=== PATIENT | male | born 1960 | race Caucasian/White ===

== ENCOUNTER 2016-12-25 11:19 | Inpatient (IN) | payer OTHER ==
[~2016-12-25] VITALS: Ht 175.3 cm; Wt 80.5 kg
[2016-12-25] MEDS: SODIUM CHLORIDE 0.9% 1000ML 1,000 ML IV SCH ×2 (00:10→17:55)
[2016-12-25] MEDS ORDERED: MULTTAB58 PO (12:00)
[2016-12-25] MEDS ORDERED: ATV/1 PO (12:00)
[2016-12-25] MEDS ORDERED: TAMS0.4C38 PO (12:00)
[2016-12-25] MEDS ORDERED: CHOL1000 PO (12:00)
[2016-12-25] MEDS ORDERED: VENL150C56 PO (12:00)
[2016-12-25] MEDS ORDERED: OMEP20CA9 PO (12:00)
[2016-12-25] MEDS ORDERED: QUET5TAB PO (12:00)
[2016-12-25] MEDS ORDERED: MULT-845 PO (12:00)
[2016-12-25] MEDS ORDERED: SODIUM CHLORIDE 0.9% 1000ML 1,000 ML IV STA ×2 (12:37→13:15)
--- NOTE | 2016-12-25 12:54 | EMERGENCY ROOM VISIT NOTE ---
History Report prepared by Kelly: Arnoldo Grider Under the Supervision of: Dr. Iman Sarah M.D. First contact with patient: 12:18 Chief Complaint: ABDOMINAL PAIN Stated Complaint: ABD PAIN Nursing Triage Summary: Pt presents with abd pain, RLQ. Was admitted at [facility] for 10 days with this pain. History of cirrhosis. Diarrhea today. Abd distended. Drank alcohol this AM. Denies vomiting. Pt jaundiced. History of Present Illness The patient is a 56 year old male who presents to the Emergency Room with complaints of right lower quadrant abdominal pain starting about 2 weeks ago and worsening about 3 days ago. He also complains of abdominal distention. 10 days ago, the patient was evaluated at [facility] for similar symptoms. He has a history of liver cirrhosis. He had a couple of shots of alcohol this morning. He drank a pint yesterday. He drinks about 2/5 of vodka a day. He has been drinking alcohol for the past 45 years. He also has a history of Hepatitis C. He denies any fevers, chills, or any other complaints. Source of History: patient Onset: about 2 weeks ago Position: abdomen (RLQ) Timing: worsening Associated Symptoms: No fevers, No chills Review of Systems See HPI for pertinent positives & negatives. A total of 10 systems reviewed and were otherwise negative. Past Medical & Surgical Medical Problems: (1) Abdominal pain, lactic acidosis (2) Hepatitis C (3) Liver cirrhosis Family History Patient reports no known family medical history. Social History Smoking Status: Current Every Day Smoker Alcohol Use: heavy Marital Status: single Occupation Status: retired Current/Historical Medications Scheduled Cholecalciferol (Vitamin D3), 1 TAB PO DAILY Lorazepam (Ativan), 1 MG PO DAILY Multiple Vitamin (Multivitamin), 1 TAB PO DAILY Multiple Vitamins W/ Minerals (Centrum Silver Adult 50+), 1 TAB PO DAILY Omeprazole (Prilosec), 20 MG PO BID Quetiapine Fumarate (Seroquel), 50 MG PO BID Tamsulosin Hcl (Flomax), 0.4 MG PO DAILY Venlafaxine Hcl (Effexor Extended Rel), 150 MG PO DAILY Allergies Coded Allergies: No Known Allergies (Unverified , 12/25/16) Physical Exam Vital Signs Date Time Temp Pulse Resp B/P (MAP) Pulse Ox O2 Delivery O2 Flow Rate FiO2 12/25/16 14:50 111 18 132/80 91 Room Air 12/25/16 13:43 110 17 122/78 93 Room Air 12/25/16 13:17 36.8 12/25/16 12:18 113 12/25/16 11:29 37.0 114 17 135/89 97 Room Air Physical Exam Vital signs reviewed. General: Chronically ill-appearing, in no significant distress. HEENT: No scleral icterus, PERRLA, neck supple. Atraumatic. Cardiovascular: Regular rate and rhythm, no extra sounds. Pulmonary: Clear to auscultation bilaterally, normal work of breathing. Abdomen: Soft, diffuse abdominal tenderness, positive bowel sounds. Abdominal distention with positive fluid wave. Musculoskeletal: Atraumatic, no peripheral edema. Neurologic: Patient awake alert and oriented x 3, full strength in all 4 extremities. Cranial nerves 2 through 12 grossly intact. Skin: Warm to touch, dry, no rash. Skin changes consistent with liver disease. Medical Decision & Procedures ER Provider Diagnostic Interpretation: CT and paracentesis results as stated below per my review and radiologist interpretation: CT OF THE ABDOMEN AND PELVIS WITH CONTRAST CLINICAL HISTORY: Abdominal pain, cirrhosis, fever and sepsis. COMPARISON STUDY: None. TECHNIQUE: Following IV administration of 93 mL of Optiray-320, axial images of the abdomen and pelvis were obtained from the lung bases to the proximal femurs. Images were reviewed in the axial, sagittal, and coronal planes. IV contrast was administered without complication. CT DOSE: 660.38 mGy.cm FINDINGS: Visualized portions of the lower chest demonstrate mild cardiomegaly and gynecomastia. There are trace bilateral pleural effusions with associated opacities consistent with atelectasis. There is a moderate to large amount of abdominal and pelvic ascites. The lateral segment of the liver is enlarged. There is fissural widening. There is slight nodularity of the liver surface. The findings indicate cirrhosis. No hepatic lesions are identified although sensitivity for detection of hypervascular lesions is diminished on this arterial phase exam. Size of the spleen is at the upper limits of normal. There are multiple small abdominal and pelvic varices. There is no evidence for a bowel obstruction. There is sigmoid diverticulosis without evidence for acute diverticulitis. The adrenal glands, kidneys and pancreas are normal. The main, left and right portal veins are patent. A small fat-containing umbilical hernia is present. IMPRESSION: 1. Cirrhosis with manifestations of portal hypertension including moderate to large ascites and varices formation. 2. Sigmoid diverticulosis without evidence for acute diverticulitis. 3. Trace bilateral pleural effusions. 4. Mild cardiomegaly. Electronically signed by: Bob Aguilera M.D. 12/25/2016 3:26 PM Dictated Date/Time: 12/25/2016 3:18 PM ULTRASOUND GUIDED DIAGNOSTIC AND THERAPEUTIC PARACENTESIS CLINICAL HISTORY: SBP, ETOH cirrhosis COMPARISON STUDY: CT of the abdomen and pelvis December 25, 2016. PROCEDURE: The risks, benefits, and alternatives to the procedure were discussed with the patient including the risk of bleeding, infection and injury to adjacent structures. The patient agreed to the procedure and informed written consent was obtained. Following real-time ultrasound localization, the skin of the right lower quadrant was prepped and draped. Following local anesthesia with Xylocaine, the sheath paracentesis needle was inserted and approximately 4 liters of straw-colored fluid was removed by vacuum suction. The patient tolerated the procedure well and no immediate complications were evident. IMPRESSION: Ultrasound-guided diagnostic and therapeutic paracentesis with removal of 4 liters of ascites. One bottle of ascites was sent to laboratory for analysis as ordered. Electronically signed by: Bob Aguilera M.D. 12/25/2016 4:53 PM Laboratory Results Test 12/25/16 00:00 12/25/16 12:34 12/25/16 13:06 12/25/16 13:24 Peritoneal Fluid Color YELLOW Peritoneal Fluid Appearance CLEAR Peritoneal Fluid WBC 84 /uL (0-300) Peritoneal Fluid RBC < 3000 /uL Peritoneal Fld Mononuclear WBCs (%) 83.6 % Peritoneal Fld Polynuclear WBCs (%) 16.4 % Peritoneal Fluid Total Protein 1.0 g/dl Peritoneal Fluid Albumin < 0.6 g/dl Peritoneal Fluid LDH 30 IU Peritoneal Fluid Glucose 110 mg/dl Peritoneal Fluid Amylase 7 U/L Peritoneal Fluid Lipase 90 U/L Peritoneal Fluid Triglycerides 48 mg/dl Polychromasia 1+ Prothrombin Time 15.4 SECONDS (9.0-12.0) Prothromb Time International Ratio 1.4 (0.9-1.1) Activated Partial Thromboplast Time 33.6 SECONDS (21.0-31.0) Partial Thromboplastin Ratio 1.3 Total Bilirubin 1.9 mg/dl (0.2-1) Direct Bilirubin 1.3 mg/dl (0-0.2) Aspartate Amino Transf (AST/SGOT) 29 U/L (15-37) Alanine Aminotransferase (ALT/SGPT) 11 U/L (12-78) Alkaline Phosphatase 191 U/L (45-117) Ammonia 15.0 umol/L (11-32) Total Protein 7.0 gm/dl (6.4-8.2) Albumin 2.0 gm/dl (3.4-5.0) Bedside Lactic Acid Venous 5.57 mmol/L (0.90-1.70) Bedside Troponin I < 0.030 ng/ml (0-0.045) Test 12/25/16 13:28 Ethyl Alcohol mg/dL 47.0 mg/dl (0-3) Laboratory results per my review. Medications Administered Medications (Trade) Dose Ordered Sig/Heber Route Start Time Stop Time Status Last Admin Dose Admin Sodium Chloride 1,000 ml @ 125 mls/hr Q8H STAT IV 12/25/16 12:37 12/25/16 18:40 DC 12/25/16 13:07 125 MLS/HR Piperacillin Sod/ Tazobactam Sod (Zosyn Iv) 4.5 gm NOW STAT IV 12/25/16 13:11 12/25/16 13:12 DC 12/25/16 13:46 4.5 GM Sodium Chloride 1,000 ml @ 150 mls/hr Q6H40M IV 12/25/16 16:55 01/24/17 16:54 12/26/16 07:46 150 MLS/HR ECG Indication: abdominal pain Rate (beats per minute): 107 Rhythm: sinus tachycardia Findings: no acute ischemic change, no ectopy ED Course 1218: Past medical records reviewed. The patient was evaluated in room C02B. A complete history and physical examination was performed. 1237: Sodium Chloride 1000 ml @ 125 mls/hr IV 1259: I discussed the patient's case with Dr. Aguilera, radiologist with [facility] group. He is going to do a paracentesis. 1311: Zosyn IV 4.5 gm IV 1638: Upon reevaluation, the patient is resting comfortably. I discussed laboratory and radiographic results with him. He verbalized agreement of the treatment plan. The patient will be evaluated for further management and care. 1641: I discussed the patient's case [facility] Medical Decision Medication Reconciliation: I attest that I have personally reviewed the patient' s current medication list. Blood Pressure Screening: Patient was found to have normal blood pressure on screening and does not require follow-up. Differential diagnosis: Etiologies such as SBP, appendicitis, diverticulitis, PUD, biliary pathology, UTI, pancreatitis, obstruction, mesenteric ischemia, aortic pathology, infections, inflammatory bowel disease, renal colic, as well as others were entertained. This patient was evaluated and appeared to be in no significant distress. The patient admits to significant alcohol intake on a daily basis. He states he has been trying to cut down but had a "liter of vodka" yesterday. Patient states he is having diffuse abdominal pain for which she was evaluated 10 days ago at an outside hospital. He thinks over the last 3 days the pain has gotten significantly worse. IV hydration was initiated. Laboratory work reveals a lactic acidosis. Patient's alcohol level is 47. He is slightly tachycardic, likely secondary to some alcohol withdrawal. Patient has been scheduled for paracentesis with radiology. He has been given Zosyn 4.[address] scan of the abdomen and pelvis is negative for acute infectious or inflammatory finding. There are secondary changes of cirrhosis. Patient will be evaluated by the hospitalist service for further management. He is aware of the plan and agrees. Consults Time Called: 1254 Consulting Physician: Dr. Aguilera, radiologist with [facility] physician group Returned Call: 1259 I discussed the patient's case with Dr. Aguilera, radiologist with [facility] physician group. He is going to do a paracentesis. Additional Consults: Time Called: 1639 Consulted Physician: Dr. Christine, from [facility] Hospitalist Service Returned Call: 1641 Additional Comments: I discussed the patient's case with Dr[facility] Impression Primary Impression: Sepsis Additional Impression: Abdominal pain Scribe Attestation The scribe's documentation has been prepared under my direction and personally reviewed by me in its entirety. I confirm that the note above accurately reflects all work, treatment, procedures, and medical decision making performed by me. Departure Information Dispostion Being Evaluated By Hospitalist Patient Instructions My [facility] Problem Qualifiers
[2016-12-25 13:09] LABS: BASO % 0.4 %; BASO ABS # 0.04 K/uL (0-0.2); EOS % 0.9 %; HEMATOCRIT 27.8 % (42-52); IG% 0.3 %; LYMPH % 12.1 %; LYMPH ABS # 1.36 K/uL (1.2-3.4); MEAN CELL VOLUME 89.1 fL (80-100); MEAN CORPUSCULAR HEMOGLOBIN 28.8 pg (25-34); MEAN CORPUSCULAR HGB CONC 32.4 g/dl (32-36); MEAN PLATELET VOLUME 10.9 fL (7.4-10.4); MONO % 6.5 %; NEUT % 79.8 %; PLATELET COUNT 157 K/uL (130-400); RED BLOOD COUNT 3.12 M/uL (4.7-6.1); WHITE BLOOD COUNT 11.24 K/uL (4.8-10.8)
[2016-12-25] MEDS ORDERED: PIPERACILLIN/TAZOBACTAM 4.5 GM/100ML D5W IV STA (13:11)
[2016-12-25 13:20] LABS: INR 1.4 (0.9-1.1); PARTIAL THROMBOPLASTIN RATIO 1.3; PROTHROMBIN TIME (PATIENT) 15.4 SECONDS (9.0-12.0)
[2016-12-25 13:30] LABS: BUN/CREATININE RATIO 8.8 (10-20); CALCIUM 7.8 mg/dl (8.5-10.1); CREATININE 0.6 mg/dl (0.60-1.40); POTASSIUM 4.3 mmol/L (3.5-5.1)
[2016-12-25] MEDS ORDERED: OPTIRAY 320 IV PRN (13:30)
[2016-12-25 13:49] LABS: ANISOCYTOSIS PRESENT; COMPLETE YES; POLYCHROMASIA 1+; TARGET CELLS 2+
--- NOTE | 2016-12-25 15:28 | DIAGNOSTIC IMAGING REPORT ---
CT OF THE ABDOMEN AND PELVIS WITH CONTRAST CLINICAL HISTORY: Abdominal pain, cirrhosis, fever and sepsis. COMPARISON STUDY: None. TECHNIQUE: Following IV administration of 93 mL of Optiray-320, axial images of the abdomen and pelvis were obtained from the lung bases to the proximal femurs. Images were reviewed in the axial, sagittal, and coronal planes. IV contrast was administered without complication. CT DOSE: 660.38 mGy.cm FINDINGS: Visualized portions of the lower chest demonstrate mild cardiomegaly and gynecomastia. There are trace bilateral pleural effusions with associated opacities consistent with atelectasis. There is a moderate to large amount of abdominal and pelvic ascites. The lateral segment of the liver is enlarged. There is fissural widening. There is slight nodularity of the liver surface. The findings indicate cirrhosis. No hepatic lesions are identified although sensitivity for detection of hypervascular lesions is diminished on this arterial phase exam. Size of the spleen is at the upper limits of normal. There are multiple small abdominal and pelvic varices. There is no evidence for a bowel obstruction. There is sigmoid diverticulosis without evidence for acute diverticulitis. The adrenal glands, kidneys and pancreas are normal. The main, left and right portal veins are patent. A small fat-containing umbilical hernia is present. IMPRESSION: 1. Cirrhosis with manifestations of portal hypertension including moderate to large ascites and varices formation. 2. Sigmoid diverticulosis without evidence for acute diverticulitis. 3. Trace bilateral pleural effusions. 4. Mild cardiomegaly. Electronically signed by: Bob Aguilera M.D. 12/25/2016 3:26 PM Dictated Date/Time: 12/25/2016 3:18 PM
--- NOTE | 2016-12-25 16:54 | DIAGNOSTIC IMAGING REPORT ---
ULTRASOUND GUIDED DIAGNOSTIC AND THERAPEUTIC PARACENTESIS CLINICAL HISTORY: SBP, ETOH cirrhosis COMPARISON STUDY: CT of the abdomen and pelvis December 25, 2016. PROCEDURE: The risks, benefits, and alternatives to the procedure were discussed with the patient including the risk of bleeding, infection and injury to adjacent structures. The patient agreed to the procedure and informed written consent was obtained. Following real-time ultrasound localization, the skin of the right lower quadrant was prepped and draped. Following local anesthesia with Xylocaine, the sheath paracentesis needle was inserted and approximately 4 liters of straw-colored fluid was removed by vacuum suction. The patient tolerated the procedure well and no immediate complications were evident. IMPRESSION: Ultrasound-guided diagnostic and therapeutic paracentesis with removal of 4 liters of ascites. One bottle of ascites was sent to laboratory for analysis as ordered. Electronically signed by: Bob Aguilera M.D. 12/25/2016 4:53 PM Dictated Date/Time: 12/25/2016 4:52 PM
[2016-12-25] MEDS ORDERED: POLYETHYLENE (MIRALAX) 17 GM PACK PO PRN (17:00)
[2016-12-25] MEDS ORDERED: ONDANSETRON INJ 2 MG/ML 2 ML VIAL IV PRN (17:00)
--- NOTE | 2016-12-25 17:00 | History and Physical ---
History & Physical Date & Time of Service: Dec 25, 2016 at 16:59 Chief Complaint: Abd Pain Primary Care Physician: No Doctor, Assigned History of Present Illness Source: patient A 56-year-old male with PMHx of chronic alcohol use, anxiety and depression, chronic cigarette smoking of 1 ppd 45 years, who presents to the ER with complaints of abdominal pain and swelling which appeared like a basketball. Here in the ER the patient had approximately 4 L drained off of his abdomen, the fluid has been sent for cytology/pathology. He was recently seen in [place] the ER ~1 month ago for swelling of his ankles bilaterally. He reports that the ER physician there told him he only had one year to live, and becomes quite tearful about this. He reports his abdominal pain is significantly improved since the fluid drained off. He does admit to chills and sweats over the past 3 days. He denies taking his temperature. The patient has been finding it difficult to eat recently, and has early satiety. He denies any nausea or vomiting. His bowels been moving regularly. He reports drinking alcohol, chronically two 5ths of vodka daily, and has reduced this down to 1 pint daily. Last time he drank was yesterday. He does admit to feeling anxious, and was reluctant to stay however is agreeable to admission. Of note the patient also makes me aware that he fell down a flight and a half the stairs approximately 1 week ago, which he admits he was drinking when this happened. He reports falling and hitting his head, and since then has his left eye has looked red. He denies any bruises currently. He denies that he sought out medical care at that time. CT abdomen and pelvis was completed showing abdominal ascites, portal hypertension, cirrhosis. WBC= 11.24, Hgb = 9.0 Lactic acid was elevated at 5.2 initial troponin was negative. Past Medical/Surgical History Medical Problems: (1) Hepatitis C Status: Chronic (2) Liver cirrhosis Status: Chronic Family History Patient reports no known family medical history. Social History Smoking Status: Current Every Day Smoker Smokeless Tobacco Use: Unknown Alcohol Use: heavy Drug Use: none Marital Status: single Housing status: lives alone Occupational Status: unemployed Allergies Coded Allergies: No Known Allergies (Unverified , 12/25/16) Home Medications Scheduled Cholecalciferol (Vitamin D3), 1 TAB PO DAILY Lorazepam (Ativan), 1 MG PO DAILY Multiple Vitamin (Multivitamin), 1 TAB PO DAILY Multiple Vitamins W/ Minerals (Centrum Silver Adult 50+), 1 TAB PO DAILY Omeprazole (Prilosec), 20 MG PO BID Quetiapine Fumarate (Seroquel), 50 MG PO BID Tamsulosin Hcl (Flomax), 0.4 MG PO DAILY Venlafaxine Hcl (Effexor Extended Rel), 150 MG PO DAILY Review of Systems Constitutional: + Chills, No fever or sweats Eyes: No diplopia, no worsening or blurred vision ENT: normal hearing, no trouble swallowing Respiratory: No cough, sputum, dyspnea at rest or on exertion Cardiovascular: No chest pain, tightness or palpitations Abdomen: + ascites, No pain, nausea, vomiting, diarrhea or constipation Musculoskeletal: No joint pain, calf pain, swelling Neurologic: No weakness, numbness/tingling, or balance problems Psychiatric: + anxiety and depression, chronic alcohol use Skin: No rash or itch Physical Exam Vital Signs Date Time Temp Pulse Resp B/P (MAP) Pulse Ox O2 Delivery O2 Flow Rate FiO2 12/25/16 14:50 111 18 132/80 91 Room Air 12/25/16 13:43 110 17 122/78 93 Room Air 12/25/16 13:17 36.8 12/25/16 12:18 113 12/25/16 11:29 37.0 114 17 135/89 97 Room Air General: awake, alert, no apparent distress Head: Normocephalic, atraumatic ENT: PERRL, EOMI, no pharyngeal exudate, mucous membranes moist Chest: Clear to auscultation, on room air, no adventitious breath sounds Cardiac: Slightly tachycardic, no murmur, no JVD, normal peripheral pulses, good capillary refill Abdominal: + Hypoactive bowel sounds, soft, nontender to palpation, no rebound, guarding or tenderness Extremities: Normal inspection, 1+ pitting edema BLE, no erythema, calfs nontender to palpation Psych: Normal mood and affect Neuro: AAO x 3, strength intact bilaterally and related 5/5, no motor deficits, speech is clear, no peripheral sensory deficits Diagnostics Laboratory Results Results Past 24 Hours Test 12/25/16 12:34 12/25/16 13:06 12/25/16 13:24 12/25/16 13:28 Range/Units White Blood Count 11.24 4.8-10.8 K/uL Red Blood Count 3.12 4.7-6.1 M/uL Hemoglobin 9.0 14.0-18.0 g/dL Hematocrit 27.8 42-52 % Mean Corpuscular Volume 89.1 80-100 fL Mean Corpuscular Hemoglobin 28.8 25-34 pg Mean Corpuscular Hemoglobin Concent 32.4 32-36 g/dl Platelet Count 157 130-400 K/uL Mean Platelet Volume 10.9 7.4-10.4 fL Neutrophils (%) (Auto) 79.8 % Lymphocytes (%) (Auto) 12.1 % Monocytes (%) (Auto) 6.5 % Eosinophils (%) (Auto) 0.9 % Basophils (%) (Auto) 0.4 % Neutrophils # (Auto) 8.98 1.4-6.5 K/uL Lymphocytes # (Auto) 1.36 1.2-3.4 K/uL Monocytes # (Auto) 0.73 0.11-0.59 K/uL Eosinophils # (Auto) 0.10 0-0.5 K/uL Basophils # (Auto) 0.04 0-0.2 K/uL RDW Standard Deviation 68.1 36.4-46.3 fL RDW Coefficient of Variation 22.3 11.5-14.5 % Immature Granulocyte % (Auto) 0.3 % Immature Granulocyte # (Auto) 0.03 0.00-0.02 K/uL Polychromasia 1+ Anisocytosis PRESENT Target Cells 2+ Prothrombin Time 15.4 9.0-12.0 SECONDS Prothromb Time International Ratio 1.4 0.9-1.1 Activated Partial Thromboplast Time 33.6 21.0-31.0 SECONDS Partial Thromboplastin Ratio 1.3 Sodium Level 135 136-145 mmol/L Potassium Level 4.3 3.5-5.1 mmol/L Chloride Level 103 98-107 mmol/L Carbon Dioxide Level 21 21-32 mmol/L Anion Gap 11.0 3-11 mmol/L Blood Urea Nitrogen 5 7-18 mg/dl Creatinine 0.60 0.60-1.40 mg/dl Est Creatinine Clear Calc Drug Dose 147.7 ml/min Estimated GFR () 128.5 Estimated GFR (Non- 110.8 BUN/Creatinine Ratio 8.8 10-20 Random Glucose 104 70-99 mg/dl Calcium Level 7.8 8.5-10.1 mg/dl Total Bilirubin 1.9 0.2-1 mg/dl Direct Bilirubin 1.3 0-0.2 mg/dl Aspartate Amino Transf (AST/SGOT) 29 15-37 U/L Alanine Aminotransferase (ALT/SGPT) 11 12-78 U/L Alkaline Phosphatase 191 45-117 U/L Ammonia 15.0 11-32 umol/L Total Protein 7.0 6.4-8.2 gm/dl Albumin 2.0 3.4-5.0 gm/dl Bedside Lactic Acid Venous 5.57 0.90-1.70 mmol/L Bedside Troponin I < 0.030 0-0.045 ng/ml Lactic Acid Level 5.2 0.4-2.0 mmol/L Ethyl Alcohol mg/dL 47.0 0-3 mg/dl Microbiology Results 12/25/16 Blood Culture, Received Pending 12/25/16 Blood Culture, Received Pending Diagnostic Radiology CT OF THE ABDOMEN AND PELVIS WITH CONTRAST CLINICAL HISTORY: Abdominal pain, cirrhosis, fever and sepsis. COMPARISON STUDY: None. TECHNIQUE: Following IV administration of 93 mL of Optiray-320, axial images of the abdomen and pelvis were obtained from the lung bases to the proximal femurs. Images were reviewed in the axial, sagittal, and coronal planes. IV contrast was administered without complication. CT DOSE: 660.38 mGy.cm FINDINGS: Visualized portions of the lower chest demonstrate mild cardiomegaly and gynecomastia. There are trace bilateral pleural effusions with associated opacities consistent with atelectasis. There is a moderate to large amount of abdominal and pelvic ascites. The lateral segment of the liver is enlarged. There is fissural widening. There is slight nodularity of the liver surface. The findings indicate cirrhosis. No hepatic lesions are identified although sensitivity for detection of hypervascular lesions is diminished on this arterial phase exam. Size of the spleen is at the upper limits of normal. There are multiple small abdominal and pelvic varices. There is no evidence for a bowel obstruction. There is sigmoid diverticulosis without evidence for acute diverticulitis. The adrenal glands, kidneys and pancreas are normal. The main, left and right portal veins are patent. A small fat-containing umbilical hernia is present. IMPRESSION: 1. Cirrhosis with manifestations of portal hypertension including moderate to large ascites and varices formation. 2. Sigmoid diverticulosis without evidence for acute diverticulitis. 3. Trace bilateral pleural effusions. 4. Mild cardiomegaly. Electronically signed by: Bob Aguilera M.D. 12/25/2016 3:26 PM Dictated Date/Time: 12/25/2016 3:18 PM The status of this report is Signed. EKG Vent. rate 107 BPM IL interval 140 ms QRS duration 78 ms QT/QTc 354/472 ms P-R-T axes 43 -44 35 Sinus tachycardia Left axis deviation Anterolateral infarct , age undetermined Abnormal ECG No previous ECGs available Confirmed by WEI BROUSSARD ([id number]) on 12/25/2016 4:33:40 PM Impression Assessment and Plan A 56-year-old male with PMHx of chronic alcohol use, anxiety and depression, chronic cigarette smoking of 1 ppd 45 years, who presents to the ER with complaints of abdominal pain and swelling which appeared "like a basketball". Liver cirrhosis Abdominal ascites secondary to portal hypertension ? sepsis with peritonitis - Admit the patient to telemetry - CT of the abdomen was completed showing cirrhosis with manifestations of portal hypertension including moderate to large ascites and varices formation. - Abdominal ascites was drained off while in the ER, approximately 4 L per patient report, follow peritoneal fluid cx/labs. - Blood cultures were obtained, follow - WBC 11.24, Lactic acid of 5.7, repeated lactic in process, pt does not have an anion gap - was started on zosyn in the ED, will continue Alcohol use - Patient has reduced his alcohol consumption from two 5ths of vodka to 1 pint daily, Ativan on board for withdrawal symptoms - Continue MVI, folate, B12 supplementation - Discussion regarding cessation provided at bedside Chronic tobacco abuse - order a nicotine 21 g patch, cessation provided at bedside Depression and anxiety - Continue Seroquel 50 mg BID, Ativan 1.0 mg PO daily - [facility] [place] [facility] no longer has a [facility]. Patient with should establish new PCP, he is from [place]. DVT prophylaxis: Teds, SCDs, Lovenox subcutaneous CODE STATUS: DO NOT RESUSCITATE Disposition: Patient from home, lives alone, to assist with discharge planning PA Physician Supervision Note: I interviewed and examined the patient. Discussed with Luisa Pedraza PAC and agree with findings and plan as documented in the note. Any exceptions or clarifications are listed here: None 48-year-old male chronic alcohol use history portal hypertension from cirrhosis who presents with abdominal pain and distention, elevated lactic acid and concern for spontaneous bacterial peritonitis. Emergency room had contacted radiology for possible diagnostic and therapeutic paracentesis. The patient has been weaning himself off alcohol but has not completely stopped drinking he currently does have a serum alcohol level. He is afebrile but tachycardic blood pressure stable Cardiac exam is regular and tachycardic lungs have decreased breath sounds at bases Abdomen is protuberant normoactive bowel sounds is tender but there is this is not an acute abdomen 56-year-old alcoholic male with cirrhosis and ascites with concern for spontaneous bacterial peritonitis, patient started on Zosyn in the ER will continue. Benzodiazepines for alcohol withdrawal, hopefully coordinate paracentesis for culture. Alcohol cessation counseling was performed. Documented By: Anup Christine Level of Care Telemetry Resuscitation Status DO NOT RESUSCITATE VTE Prophylaxis VTE Risk Assessment Done? Y/N: Yes Risk Level: Low
[2016-12-25 17:15] LABS: URINE APPEARANCE CLEAR (CLEAR); URINE COLOR DK YELLOW; URINE NITRITE NEG (NEG); URINE SPECIFIC GRAVITY 1.041 (1.000-1.030); UROBILINOGEN NEG (NEG); ZZUR CULT IF INDIC CLEAN CATCH NO
[2016-12-25] MEDS ORDERED: LORAZEPAM 2 MG/ML 1 ML VIAL IV PRN (17:15)
[2016-12-25 17:18] LABS: MANUAL MICROSCOPIC REQUIRED? NO; REVIEW REQ? NO; URINE BILIRUBIN 1+ (NEG)
[2016-12-25 18:23] VITALS: BP 118/71; PULSE 113; TEMP 36.8; O2SAT 97; Ht 175.3 cm; Wt 80.5 kg
[2016-12-25] MEDS ORDERED: LORAZEPAM INJ 0.5 MG in SYRINGE 0.75 ML IV PRN (18:45)
[2016-12-25] MEDS ORDERED: PIPERACILL/TAZOBAC CONSULT ACTIVE PRN (19:00)
[2016-12-25 19:09] LABS: PERIT FL WBC 84 /uL (0-300); PERITONEAL FLUID RBC < 3000 /uL
[2016-12-25] MEDS: NICOTINE 21 MG/24 HR TDSY TD SCH (19:31)
[2016-12-25] MEDS: PIPERACILL/TAZOBAC IV 3.375 GM in DEXTROSE 5% 100ML 100 ML IV SCH (20:18)
[2016-12-25] MEDS ORDERED: NURSING VERBAL MED ORDER ONE (20:30)
[2016-12-25] MEDS ORDERED: QUETIAPINE FUMARATE 25 MG TAB PO SCH (21:00)
[2016-12-25] MEDS: QUETIAPINE FUMARATE 25 MG TAB PO SCH (22:02)
[2016-12-26 00:06] VITALS: BP 110/70; PULSE 100; TEMP 36.9; O2SAT 95
[2016-12-26] MEDS: ACETAMINOPHEN 325 MG TAB PO PRN ×2 (02:53→07:47)
[2016-12-26 03:39] VITALS: BP 120/70; PULSE 97; TEMP 36.9; O2SAT 97
[2016-12-26] MEDS: PIPERACILL/TAZOBAC IV 3.375 GM in DEXTROSE 5% 100ML 100 ML IV SCH (03:46)
[2016-12-26 06:30] LABS: BASO % 0.5 %; BASO ABS # 0.04 K/uL (0-0.2); HEMATOCRIT 26.4 % (42-52); IG% 0.3 %; LYMPH % 14.7 %; MEAN CELL VOLUME 91.3 fL (80-100); MEAN CORPUSCULAR HEMOGLOBIN 28.4 pg (25-34); MEAN CORPUSCULAR HGB CONC 31.1 g/dl (32-36); MEAN PLATELET VOLUME 10.3 fL (7.4-10.4); MONO % 8.6 %; NEUT % 73.9 %; PLATELET COUNT 147 K/uL (130-400); RED BLOOD COUNT 2.89 M/uL (4.7-6.1); WHITE BLOOD COUNT 8.85 K/uL (4.8-10.8)
[2016-12-26 07:05] LABS: BUN/CREATININE RATIO 7.1 (10-20); CALCIUM 7.3 mg/dl (8.5-10.1); CREATININE 0.59 mg/dl (0.60-1.40); POTASSIUM 3.9 mmol/L (3.5-5.1)
[2016-12-26 07:25] VITALS: BP 102/61; PULSE 89; TEMP 37; O2SAT 95
[2016-12-26 07:31] LABS: ANISOCYTOSIS PRESENT; COMPLETE YES; TARGET CELLS 2+
[2016-12-26] MEDS: SODIUM CHLORIDE 0.9% 1000ML 1,000 ML IV SCH (07:46)
[2016-12-26] MEDS: QUETIAPINE FUMARATE 25 MG TAB PO SCH (07:48)
[2016-12-26] MEDS: NICOTINE 21 MG/24 HR TDSY TD SCH (07:50)
[2016-12-26 08:00] VITALS: O2SAT 98
[2016-12-26] MEDS ORDERED: CHOLECALCIFEROL 1000 INTER.UNIT TAB PO SCH (09:00)
[2016-12-26] MEDS ORDERED: MULTIVITAMIN TAB PO SCH (09:00)
[2016-12-26] MEDS ORDERED: ENOXAPARIN 40 MG/0.4 ML SYR SQ SCH (09:00)
[2016-12-26] MEDS ORDERED: TAMSULOSIN HCL 0.4 MG CAP PO SCH (09:00)
[2016-12-26] MEDS ORDERED: VENLAFAXINE HCL XR 150 MG CAPXR PO SCH (09:00)
[2016-12-26] MEDS ORDERED: LORAZEPAM 1 MG TAB PO PRN (10:00)
--- NOTE | 2016-12-26 11:13 | Family Medicine Progress Note ---
Progress Note Date of Service Dec 26, 2016. Medications Current Inpatient Medications Medications (Trade) Dose Ordered Sig/Heber Route Start Time Stop Time Status Last Admin Dose Admin Ioversol (Optiray 320) 111 ml UD PRN IV 12/25/16 13:30 12/29/16 13:29 Sodium Chloride 1,000 ml @ 150 mls/hr Q6H40M IV 12/25/16 16:55 01/24/17 16:54 12/26/16 07:46 150 MLS/HR Acetaminophen (Tylenol Tab) 650 mg Q4H PRN PO 12/25/16 17:00 01/24/17 16:59 12/26/16 07:47 650 MG Ondansetron HCl (Zofran Inj) 4 mg Q6H PRN IV 12/25/16 17:00 01/24/17 16:59 Polyethylene (Miralax Powder Packet) 17 gm DAILY PRN PO 12/25/16 17:00 01/24/17 16:59 Lorazepam (Ativan Inj) 0.5 mg Q6H PRN IV 12/25/16 17:15 01/24/17 17:14 Cholecalciferol (Vitamin D Tab) 1,000 inter.unit DAILY PO 12/26/16 09:00 01/25/17 08:59 12/26/16 07:49 1,000 INTER.UNIT Multivitamins (Multivitamin Tab) 1 tab DAILY PO 12/26/16 09:00 01/25/17 08:59 12/26/16 07:49 1 TAB Tamsulosin HCl (Flomax Cap) 0.4 mg DAILY PO 12/26/16 09:00 01/25/17 08:59 12/26/16 07:49 0.4 MG Venlafaxine HCl (effeXOR EXTENDED REL CAP) 150 mg DAILY PO 12/26/16 09:00 01/25/17 08:59 12/26/16 07:49 150 MG Piperacillin Sod/ Tazobactam Sod 3.375 gm/Dextrose 115 ml @ 28.75 mls/ hr Q8H IV 12/25/16 20:00 01/04/17 19:59 12/26/16 03:46 28.75 MLS/HR Enoxaparin Sodium (Lovenox Inj) 40 mg QAM SQ 12/26/16 09:00 01/25/17 08:59 12/26/16 07:50 40 MG Nicotine (Nicoderm Cq 21MG Patch) 1 patch QAM TD 12/25/16 18:30 01/24/17 18:29 Miscellaneous (Remove Nicoderm Patch) 1 ea HS N/A 12/25/16 21:00 01/24/17 20:59 Folic Acid (Folvite Tab) 1 mg QAM PO 12/26/16 09:00 01/25/17 08:59 12/26/16 07:50 1 MG Lorazepam 0.5 mg/ Syringe 1 ml @ 1 mls/min Q6H PRN IV 12/25/16 18:45 01/24/17 18:44 Piperacillin Sod/ Tazobactam Sod (Consult) 1 ea UD PRN N/A 12/25/16 19:00 01/24/17 18:59 Quetiapine Fumarate (seroQUEL TAB) 50 mg BID@0900,2200 PO 12/25/16 22:00 01/24/17 21:59 12/26/16 07:48 50 MG Lorazepam (Ativan Tab) 1 mg ONE PRN PO 12/26/16 10:00 Resident Tracking Resident Involvement: Resident Care Provided Care Provided: Adult Hospital Medicine
[2016-12-26 12:20] VITALS: BP 102/65; PULSE 90; TEMP 36.8; O2SAT 95
--- NOTE | 2016-12-26 14:14 | Discharge Instructions ---
Discharge Instructions Date of Service Dec 26, 2016. Admission Reason for Admission: Abdominal Pain, Lactic Acidosis Discharge Discharge Diagnosis / Problem: Liver cirrhosis, Alcohol Use, Hepatitis C Discharge Goals Goal(s): Decrease discomfort, Improve function, Increase independence, Improve disease control, Improve nutritional status, Learn about illness, Diagnostic testing, Therapeutic intervention, Screening, Prevent Disease Progression, Specific goals Activity Recommendations Activity Limitations: resume your previous activity . Instructions / Follow-Up Instructions / Follow-Up You came in with ascites( fluid in the belly) due to Liver disease - Please refrain from alcohol use - Please followup with [facility] medical services for follow up within 1-2 wks -Weigh yourself daily. Call your doctor if you gain more than 10 lbs (or more than 2 lbs per day on 3 consecutive days). -Limit use of nonsteroidal anti-inflammatory drugs (NSAIDs). Ibuprofen (Advil, Motrin), aspirin, indomethacin, sulindac are examples of NSAIDs. These drugs affect the kidneys, causing water and salt to be retained by the body. - low-salt diet. Recommended limits are 2,000 mg or less a day. Current Hospital Diet Patient's current hospital diet: Clear Liquid Diet Discharge Diet Recommended Diet: Low Sodium Diet (2gm Na) Pending Studies Studies pending at discharge: no Medical Emergencies . Who to Call and When: Medical Emergencies: If at any time you feel your situation is an emergency, please call 911 immediately. . Non-Emergent Contact Non-Emergency issues call your: Primary Care Provider Call Non-Emergent contact if: you have a fever, your pain is not controlled, your pain is worsening, your pain is unusual for you, your pain is concerning you, you have any medication questions . . "Provider Documentation" section prepared by Michael Florentino. . VTE Core Measure Inpt VTE Proph given/why not?: SCD's
[2016-12-26 14:43] VITALS: BP 102/65; PULSE 90; TEMP 36.8; O2SAT 95
--- NOTE | 2016-12-26 18:24 | Discharge Summary ---
Discharge Summary Date of Service Dec 26, 2016. (Michael Florentino MD) Discharge Summary Admission Date: Dec 25, 2016 at 16:59 Discharge Date: Dec 26, 2016 Discharge Disposition: Home Principal Diagnosis: Liver Cirrhosis with Ascites Problems/Secondary Diagnoses: Excess Alcohol Use Hep C Procedures: CT OF THE ABDOMEN AND PELVIS WITH CONTRAST CLINICAL HISTORY: Abdominal pain, cirrhosis, fever and sepsis. COMPARISON STUDY: None. TECHNIQUE: Following IV administration of 93 mL of Optiray-320, axial images of the abdomen and pelvis were obtained from the lung bases to the proximal femurs. Images were reviewed in the axial, sagittal, and coronal planes. IV contrast was administered without complication. CT DOSE: 660.38 mGy.cm FINDINGS: Visualized portions of the lower chest demonstrate mild cardiomegaly and gynecomastia. There are trace bilateral pleural effusions with associated opacities consistent with atelectasis. There is a moderate to large amount of abdominal and pelvic ascites. The lateral segment of the liver is enlarged. There is fissural widening. There is slight nodularity of the liver surface. The findings indicate cirrhosis. No hepatic lesions are identified although sensitivity for detection of hypervascular lesions is diminished on this arterial phase exam. Size of the spleen is at the upper limits of normal. There are multiple small abdominal and pelvic varices. There is no evidence for a bowel obstruction. There is sigmoid diverticulosis without evidence for acute diverticulitis. The adrenal glands, kidneys and pancreas are normal. The main, left and right portal veins are patent. A small fat-containing umbilical hernia is present. IMPRESSION: 1. Cirrhosis with manifestations of portal hypertension including moderate to large ascites and varices formation. 2. Sigmoid diverticulosis without evidence for acute diverticulitis. 3. Trace bilateral pleural effusions. 4. Mild cardiomegaly. ULTRASOUND GUIDED DIAGNOSTIC AND THERAPEUTIC PARACENTESIS CLINICAL HISTORY: SBP, ETOH cirrhosis COMPARISON STUDY: CT of the abdomen and pelvis December 25, 2016. PROCEDURE: The risks, benefits, and alternatives to the procedure were discussed with the patient including the risk of bleeding, infection and injury to adjacent structures. The patient agreed to the procedure and informed written consent was obtained. Following real-time ultrasound localization, the skin of the right lower quadrant was prepped and draped. Following local anesthesia with Xylocaine, the sheath paracentesis needle was inserted and approximately 4 liters of straw-colored fluid was removed by vacuum suction. The patient tolerated the procedure well and no immediate complications were evident. IMPRESSION: Ultrasound-guided diagnostic and therapeutic paracentesis with removal of 4 liters of ascites. One bottle of ascites was sent to laboratory for analysis as ordered. (Michael Florentino MD) Medication Reconciliation Continued Medications: Cholecalciferol (Vitamin D3) 1,000 Unit Tab 1 TAB PO DAILY for 30 Days, #30 TAB 5 Refills Lorazepam (Ativan) 1 Mg Tab 1 MG PO DAILY, TAB Multiple Vitamin (Multivitamin) 1 Tab Tab 1 TAB PO DAILY, TAB Multiple Vitamins W/ Minerals (Centrum Silver Adult 50+) 1 Tab Tab 1 TAB PO DAILY Omeprazole (Prilosec) 20 Mg Cap 20 MG PO BID, CAP Quetiapine Fumarate (Seroquel) 50 Mg Tab 50 MG PO BID, TAB Tamsulosin Hcl (Flomax) 0.4 Mg Cap 0.4 MG PO DAILY, CAP Venlafaxine Hcl (Effexor Extended Rel) 150 Mg Cap 150 MG PO DAILY, CAP Discharge Exam Pt reported mild lower abdominal discomfort but was much improved s/p paracentesis. no CP, SOB, N/V, fevers, chills Review of Systems: Constitutional: No fever, No chills Respiratory: No cough, No shortness of breath Cardiovascular: No chest pain, No palpitations Abdomen: + problem reported (ascites ( Improved)), No pain, No nausea Genitourinary - Male: No urinary frequency, No urinary urgency Neurologic: No weakness, No numbness/tingling Integumentary: No rash, No itch Physical Exam: General Appearance: WD/WN, no apparent distress Eyes: PERRL, EOMI, + pertinent finding (L Eye reddened sclera) Neck: supple, no adenopathy, no carotid bruits, trachea midline Respiratory/Chest: lungs clear, normal breath sounds, no respiratory distress Cardiovascular: regular rate, rhythm, no murmur Abdomen / GI: non tender, soft, no organomegaly, + distended (mild ( improved s/p paracentesis)) Extremities: no calf tenderness, no pedal edema Neurologic/Psychiatric: alert, normal mood/affect Skin: warm/dry, no rash (Michael Florentino MD) abdominal pain resolved tolerated his diet. Review of Systems: Constitutional: No fever Respiratory: No shortness of breath Cardiovascular: No chest pain Abdomen: No pain, No nausea, No vomiting Physical Exam: General Appearance: no apparent distress Respiratory/Chest: lungs clear, no respiratory distress Cardiovascular: regular rate, rhythm Abdomen / GI: normal bowel sounds, non tender, soft, + distended Neurologic/Psychiatric: alert, oriented x 3 Skin: warm/dry (Ashley Sanchez M.D.) Hospital Course HPI A 56-year-old male with PMHx of chronic alcohol use, anxiety and depression, chronic cigarette smoking of 1 ppd 45 years, who presents to the ER with complaints of abdominal pain and swelling which appeared like a basketball. Here in the ER the patient had approximately 4 L drained off of his abdomen, the fluid has been sent for cytology/pathology. He was recently seen in [place] the ER ~1 month ago for swelling of his ankles bilaterally. He reports that the ER physician there told him he only had one year to live, and becomes quite tearful about this. He reports his abdominal pain is significantly improved since the fluid drained off. He does admit to chills and sweats over the past 3 days. He denies taking his temperature. The patient has been finding it difficult to eat recently, and has early satiety. He denies any nausea or vomiting. His bowels been moving regularly. He reports drinking alcohol, chronically two 5ths of vodka daily, and has reduced this down to 1 pint daily. Last time he drank was yesterday. He does admit to feeling anxious, and was reluctant to stay however is agreeable to admission. Of note the patient also makes me aware that he fell down a flight and a half the stairs approximately 1 week ago, which he admits he was drinking when this happened. He reports falling and hitting his head, and since then has his left eye has looked red. He denies any bruises currently. He denies that he sought out medical care at that time. CT abdomen and pelvis was completed showing abdominal ascites, portal hypertension, cirrhosis. WBC= 11.24, Hgb = 9.0 Lactic acid was elevated at 5.2 initial troponin was negative. Course: Liver cirrhosis Abdominal ascites secondary to portal hypertension - Admitted to telemetry - CT of the abdomen was completed showing cirrhosis with manifestations of portal hypertension including moderate to large ascites and varices formation. - Paracentesis of ascites in the ER, approximately 4 L per patient report, - WBC 11.24, Lactic acid of 5.7, repeated lactic in process, pt does not have an anion gap - was started on zosyn in the ED, will continue - Blood cultures were obtained, pending - Peritoneal fluid: clear colored, 84 WBC's, SAAG score 1.4 consistent with protal HTN, SBP unlikely given WBC count in fluid. ACiD Fast, Mycobacterial cx' s pending -experienced significant relief s/p paracentesis D/c's abx on discharge based on lack of evidence of SBP from paracentesis fluid testing Alcohol use - patient reproted he had reduced alcohol consumption from two 5ths of vodka to 1 pint daily, - placed on Ativan on board for withdrawal symptoms - placed on MVI, folate, B12 supplementation -Discussed with patient the importance of refraining from alcohol, resouces for alcohol abuse services given prior to discharge Chronic tobacco abuse - placed on a nicotine 21 g patch, cessation provided at bedside Depression and anxiety - Continued home Seroquel 50 mg BID, Ativan 1.0 mg PO daily - [facility] [place], and said he would follow up with a physician there frollowing discharge Patient was discharged 12/26/16 Total Time Spent: Less than 30 minutes This includes examination of the patient, discharge planning, medication reconciliation, and communication with other providers. (Michael Florentino MD) Resident Physician Supervision Note: I was present with Dr. Florentino in bedside. I verified the boss history and physical, reviewed labs and image studies, discussed the case with the resident and agree with the findings and care plan. Total Time Spent: Greater than 30 minutes (40) (Ashley Sanchez M.D.) Discharge Instructions Please refer to the electronic Patient Visit Report (Discharge Instructions) for additional information. (Michael Florentino MD)
== END 2016-12-26 16:38 | disposition home or self-care (01) | DRG 433 ==
LOC: C.EDC 11:21 → C.2T 16:59 → ENRESERV 17:12
PROVIDERS: ADMIT Internal Medicine; ATTEND Family Medicine
PROC: 0W9G3ZX Drainage of Peritoneal Cavity, Percutaneous Approach, Diagnostic (ICD-10-PCS; principal; 2016-12-25)
PROC: 0W9G3ZZ Drainage of Peritoneal Cavity, Percutaneous Approach (ICD-10-PCS; principal; 2016-12-25)
DX: K70.31 Alcoholic cirrhosis of liver with ascites (principal); K76.6 Portal hypertension; B19.20 Unspecified viral hepatitis C without hepatic coma; F32.9 Major depressive disorder, single episode, unspecified; F41.9 Anxiety disorder, unspecified; F10.20 Alcohol dependence, uncomplicated; F17.210 Nicotine dependence, cigarettes, uncomplicated; Z79.899 Other long term (current) drug therapy; Z66 Do not resuscitate; Z91.81 History of falling